=== PATIENT | female | born 1955 | race Caucasian/White ===

== ENCOUNTER → 2018-02-23 | Day surgery (SDC) | payer BC, OTHER ==
[2018-02-20 11:21] VITALS: BMI 29.2
[~2018-02-23] MED LIST: Fentanyl 100 MCG/2 ML VIAL ONE; Midazolam HCl 2 mg/2 ml Vial ONE
[2018-02-23 09:23] LABS: #Basophils 0.1 thou/uL (0.0-0.2); #Eosinphils 0.4 thou/uL (0.0-0.7); #Lymphocytes 1.5 thou/uL (1.20-3.40); #Monocytes 0.5 thou/uL (0.11-0.59); #Neutrophils 3.1 thou/uL (1.40-6.50); %Basophils 1.2 % (0.0-1.0); %Eosinophils 7.2 % (0.0-10.0); %Lymphocytes 26.9 % (21.0-51.0); %Neutrophils 55.8 % (42.0-75.0); Hemoglobin 13.6 g/dL (12.0-16.0); Mean Corpuscular HGB CONC 33.3 g/dL (32.0-36.0); Mean Corpuscular Hemoglobin 31.1 pg (27.0-31.0); Mean Corpuscular Volume 93.3 fl (81.0-99.0); Mean Platelet Volume 5.9 fL (7.4-10.4); Platelet Count 313 thou/uL (130-400); RBC Distribution Width 12.4 % (11.5-14.5); Red Blood Cell (RBC) Count 4.39 mill/uL (4.20-5.40); White Blood Cell (WBC) Count 5.5 thou/uL (4.8-10.8)
[2018-02-23 09:35] LABS: PTT 29.2 SEC (22.9-36.1); Prothrombin Time 13.1 SEC (12.0-14.7)
[2018-02-23 09:52] VITALS: TEMP 97.1
--- NOTE | 2018-02-23 12:00 | ULT ---
ULTRASOUND GUIDED LIVER BIOPSY: Date: 02/23/18 HISTORY: Biliary cirrhosis. COMPARISON: CT stone protocol dated 04/24/17. FINDINGS: The patient is brought to the ultrasound suite. All questions answered. The patient's abdomen was prepped and draped in the normal sterile fashion. 25 mcg of Fentanyl and 0. 5 mg of Versed was administered intravenously. Approximately 8 mL of lidocaine was instilled into sup erficial and deep soft tissues, and around the liver capsule. Using a 17 gauge introducer, the liver was accessed. Using an 18 gauge BioPince needle, two 22 mm cores were obtained. The patient tolerated the procedure well. IMPRESSION: Technically successful ultrasound guided liver biopsy. POS: DARLYN
== END ==
LOC: ULT 08:59
PROVIDERS: ATTEND Internal Medicine Gastroenterology
DX: K83.0 Cholangitis (principal); K29.70 Gastritis, unspecified, without bleeding; K21.9 Gastro-esophageal reflux disease without esophagitis; Z79.890 Hormone replacement therapy; Z79.899 Other long term (current) drug therapy; Z91.040 Latex allergy status; Z98.890 Other specified postprocedural states
CPT/HCPCS: 36415; 47000; 76942; 85025; 85610; 85730; 88307; 88313; 99152; 99153; J2250; J3010

== ENCOUNTER 2018-07-15 10:05 | Outpatient (CLI) | payer BC | END 2018-07-15 10:06 | disposition home or self-care (01) | LOC: BICMAMMO 10:05 | PROVIDERS: ATTEND Obstetrics & Gynecology | DX: Z12.31 Encounter for screening mammogram for malignant neoplasm of breast (principal); Z13.820 Encounter for screening for osteoporosis | CPT/HCPCS: 77063; 77067; 77080 ==

== ENCOUNTER 2019-07-22 11:52 | Outpatient (CLI) | payer BC ==
--- NOTE | 2019-07-22 12:40 | MMO ---
Bilateral MAMMO Bilat Screen [facility]. CLINICAL HISTORY: Patient is 64 years old and is seen for screening. The patient has no family history of breast cancer. The patient has no personal history of cancer. VIEWS: The views performed were: bilateral craniocaudal with tomosynthesis and bilateral mediolateral oblique with tomosynthesis. FILMS COMPARED: The present examination has been compared to prior imaging studies performed at [facility] on 01/09/2015, 03/17/2017 and 07/15/2018, and at [facility] on 07/28/2013. This study has been interpreted with the assistance of computer-aided detection. MAMMOGRAM FINDINGS: The breasts are almost entirely fat. There are no suspicious masses, suspicious calcifications, or new areas of architectural distortion. IMPRESSION: THERE IS NO MAMMOGRAPHIC EVIDENCE OF MALIGNANCY. A ROUTINE FOLLOW-UP MAMMOGRAM IN 1 YEAR IS RECOMMENDED. THE RESULTS OF THIS EXAM WERE SENT TO THE PATIENT. ACR BI-RADS Category 1 - Negative MAMMOGRAPHY NOTE: 1. A negative mammogram report should not delay a biopsy if a dominant of clinically suspicious mass is present. 2. Approximately 10% to 15% of breast cancers are not detected by mammography. 3. Adenosis and dense breasts may obscure an underlying neoplasm. Reported by: MAULIK ROSALES MD Electonically Signed: [id number]
== END 2019-07-22 11:53 | disposition home or self-care (01) ==
LOC: BICMAMMO 11:52
PROVIDERS: ATTEND Obstetrics & Gynecology
DX: Z12.31 Encounter for screening mammogram for malignant neoplasm of breast (principal)
CPT/HCPCS: 77063; 77067

== ENCOUNTER 2021-04-26 10:55 | Outpatient (CLI) | payer MEDICARE, BC | END 2021-04-26 10:56 | disposition home or self-care (01) | LOC: BICULT 10:55 | PROVIDERS: ATTEND Internal Medicine Gastroenterology | DX: K74.3 Primary biliary cirrhosis (principal); R16.1 Splenomegaly, not elsewhere classified; K76.6 Portal hypertension | CPT/HCPCS: 76705 ==

== ENCOUNTER 2021-09-17 21:20 | Observation (INO) | payer MEDICARE, BC ==
[~2021-09-17 21:20] MED LIST changes: -Fentanyl 100 MCG/2 ML VIAL ONE; +Iopamidol-370 76% 500 ML 1 ML ONE; -Midazolam HCl 2 mg/2 ml Vial ONE
[2021-09-17 22:04] LABS: #Basophils 0.1 thou/uL (0.0-0.2); #Eosinphils 0.5 thou/uL (0.0-0.7); #Lymphocytes 2.4 thou/uL (1.20-3.40); #Monocytes 0.7 thou/uL (0.11-0.59); #Neutrophils 5.2 thou/uL (1.40-6.50); %Basophils 0.7 % (0.0-1.0); %Eosinophils 5.7 % (0.0-10.0); %Lymphocytes 27.1 % (21.0-51.0); %Monocytes 7.5 % (0.0-10.0); Hemoglobin 14.7 g/dL (12.0-16.0); Mean Corpuscular HGB CONC 34.6 g/dL (32.0-36.0); Mean Corpuscular Hemoglobin 33.4 pg (27.0-31.0); Mean Corpuscular Volume 96.4 fL (78.0-98.0); Mean Platelet Volume 6.3 fL (7.4-10.4); Platelet Count 292 thou/uL (130-400); RBC Distribution Width 12.5 % (11.5-14.5); White Blood Cell (WBC) Count 8.8 thou/uL (4.8-10.8)
[2021-09-17 22:17] LABS: ALT (SGPT) 23 U/L (8-55); AST (SGOT) 25 U/L (5-34); Albumin 3.9 g/dL (3.4-4.8); Alkaline Phosphatase 84 U/L (40-110); Anion Gap 12 mmol/L (10-20); BUN (Urea Nitrogen) 19 mg/dL (9.8-20.1); Bilirubin, Total 0.5 mg/dL (0.2-1.2); Calc. Creatinine Clearance 0 mL/min (70-130); Calcium 9.3 mg/dL (7.8-10.44); Carbon Dioxide 26 mmol/L (23-31); Chloride 107 mmol/L (98-107); Globulin 3.3 g/dL (2.4-3.5); Glucose 120 mg/dL (80-115); Potassium 3.7 mmol/L (3.5-5.1); Protein, Total 7.2 g/dL (5.8-8.1); Sodium 141 mmol/L (136-145)
[2021-09-17] MEDS ORDERED: Nitroglycerin 0.4 MG TAB 1 EACH ONE (22:25)
[2021-09-17] MEDS ORDERED: Morphine 4 MG/ML VIAL ONE (22:47)
[2021-09-18] MEDS ORDERED: Aspirin 325 MG TAB ONE (00:04)
[2021-09-18 01:47] LABS: Troponin I Less than 0.010 ng/mL (< 0.028)
[2021-09-18 02:01] VITALS: BMI 37.3
[2021-09-18 05:06] LABS: Troponin I 0.011 ng/mL (< 0.028)
[2021-09-18] MEDS ORDERED: Guaifenesin DM 100-10/5 ML UDCUP PO PRN (07:34)
[2021-09-18] MEDS ORDERED: Acetaminophen 325 MG TAB PO PRN (07:34)
[2021-09-18] MEDS ORDERED: Ondansetron PF 4 MG/2 ML Vial IVP PRN (07:34)
[2021-09-18 08:31] LABS: Cardiac Risk 4.6 (Less than 4.5)
[2021-09-18] MEDS ORDERED: Non-Formulary Item 1 EACH (Ursodiol [Ursodiol] 500 MG Tablet) PO SCH (09:00)
[2021-09-18] MEDS ORDERED: Non-Formulary Item 1 EACH (Multivit-Min/Iron/Folic/Lutein [Centrum Silver Women] 1 TABLET PO SCH (09:00)
[2021-09-18] MEDS ORDERED: URSODIOL 500 MG PO SCH (09:00)
[2021-09-18] MEDS ORDERED: ADENOSINE 60 MG/20 ML VIAL ONE (10:15)
[2021-09-18] MEDS: Aspirin Chewable 81 MG TAB PO SCH (12:25)
[2021-09-18] MEDS: Multivit, Therapeutic 1 TAB PO SCH (12:25)
[2021-09-18] MEDS: Sodium Chloride 0.9% 1,000 ML IV SCH (12:26)
[2021-09-18] MEDS: Enoxaparin Sodium 40 MG/0.4 ML SYRINGE SC SCH (12:26)
[2021-09-18] MEDS ORDERED: Multivit, Therapeutic 1 TAB PO SCH (12:30)
[2021-09-18] MEDS ORDERED: Aspirin Chewable 81 MG TAB PO SCH (12:30)
[2021-09-18] MEDS ORDERED: Enoxaparin Sodium 40 MG/0.4 ML SYRINGE SC SCH (12:30)
[2021-09-18] MEDS ORDERED: Nitroglycerin 2% Ointment 1 INCH/1 GM Packet TOP SCH (14:00)
[2021-09-18 14:20] LABS: SARS-CoV-2 PCR by NAA Not Detected (NotDetected)
[2021-09-18] MEDS ORDERED: Nitroglycerin 0.4 MG TAB (25 Tab Bottle) SL PRN (19:50)
[2021-09-18] MEDS ORDERED: Nitroglycerin 0.4 MG TAB (25 Tab Bottle) ONE (19:51)
[2021-09-18 20:44] LABS: Troponin I 0.011 ng/mL (< 0.028)
[2021-09-18] MEDS ORDERED: Non-Formulary Item 1 EACH (Sertraline Hcl [Zoloft] 50 MG Tablet) PO SCH (21:00)
[2021-09-18] MEDS ORDERED: Estrogens, Conjugated 0.3 MG TAB PO SCH (21:00)
[2021-09-18] MEDS ORDERED: Melatonin/Pyridoxine [Melatonin 5 Mg Tablet] PO SCH (21:00)
[2021-09-18] MEDS ORDERED: Atorvastatin Calcium 20 MG TAB PO SCH (21:00)
[2021-09-18] MEDS ORDERED: Lisinopril 10 MG TAB PO SCH (21:00)
[2021-09-18] MEDS ORDERED: Non-Formulary Item 1 EACH (Melatonin/Pyridoxine [Melatonin 5 Mg Tablet] 1 EACH Tablet) PO SCH (21:00)
[2021-09-18] MEDS ORDERED: ESTROGENS CONJUGATED 0.45 MG PO SCH (21:00)
[2021-09-19] MEDS: Sodium Chloride 0.9% 1,000 ML IV SCH (01:10)
[2021-09-19 05:16] LABS: #Eosinphils 0.2 thou/uL (0.0-0.7); #Lymphocytes 1.8 thou/uL (1.20-3.40); #Monocytes 0.8 thou/uL (0.11-0.59); #Neutrophils 6.9 thou/uL (1.40-6.50); %Basophils 0.3 % (0.0-1.0); %Eosinophils 2.2 % (0.0-10.0); %Lymphocytes 18.4 % (21.0-51.0); %Monocytes 8.6 % (0.0-10.0); %Neutrophils 70.6 % (42.0-75.0); Hemoglobin 13.2 g/dL (12.0-16.0); Mean Corpuscular HGB CONC 34.5 g/dL (32.0-36.0); Mean Corpuscular Hemoglobin 33.1 pg (27.0-31.0); Mean Corpuscular Volume 95.9 fL (78.0-98.0); Platelet Count 257 thou/uL (130-400); RBC Distribution Width 12.3 % (11.5-14.5); Red Blood Cell (RBC) Count 3.98 mill/uL (4.20-5.40); White Blood Cell (WBC) Count 9.8 thou/uL (4.8-10.8)
[2021-09-19 05:32] LABS: ALT (SGPT) 21 U/L (8-55); AST (SGOT) 22 U/L (5-34); Albumin 3.4 g/dL (3.4-4.8); Alkaline Phosphatase 70 U/L (40-110); Anion Gap 9 mmol/L (10-20); BUN (Urea Nitrogen) 14 mg/dL (9.8-20.1); Bilirubin, Total 0.7 mg/dL (0.2-1.2); Calc. Creatinine Clearance 85 mL/min (70-130); Calcium 9.1 mg/dL (7.8-10.44); Carbon Dioxide 25 mmol/L (23-31); Chloride 107 mmol/L (98-107); Glucose 107 mg/dL (80-115); Protein, Total 6.4 g/dL (5.8-8.1); Sodium 137 mmol/L (136-145)
[2021-09-19 08:10] VITALS: TEMP 98.1
[2021-09-19] MEDS: Multivit, Therapeutic 1 TAB PO SCH (10:03)
[2021-09-19] MEDS: Aspirin Chewable 81 MG TAB PO SCH (10:03)
[2021-09-19] MEDS: Enoxaparin Sodium 40 MG/0.4 ML SYRINGE SC SCH (10:03)
[2021-09-19 12:31] VITALS: BP 149/66
== END 2021-09-19 12:46 | disposition home or self-care (01) ==
LOC: ERS 21:20 → 2SW 09-18 00:16
PROVIDERS: ADMIT Internal Medicine; ATTEND Internal Medicine
DX: R07.89 Other chest pain (principal); I10 Essential (primary) hypertension; F39 Unspecified mood [affective] disorder; E78.5 Hyperlipidemia, unspecified; G47.33 Obstructive sleep apnea (adult) (pediatric); E66.9 Obesity, unspecified; Z68.37 Body mass index [BMI] 37.0-37.9, adult; Z79.82 Long term (current) use of aspirin; Z79.899 Other long term (current) drug therapy; Z91.040 Latex allergy status; Z20.822 Contact with and (suspected) exposure to COVID-19
CPT/HCPCS: 71045; 71275; 72128; 74174; 78452; 80053 ×2; 80061; 83690; 83880; 84484 ×3; 85025 ×2; 93005 ×2; 93017; 96372 ×2; A9500; G0378 ×3; U0003; U0005; 36415; 93010; 96374; J0153; J1650; J2270; J7050; Q9967

== ENCOUNTER 2021-11-09 07:50 | Outpatient (CLI) | payer MEDICARE, BC | END 2021-11-09 07:51 | disposition home or self-care (01) | LOC: BICMAMMO 07:50 | PROVIDERS: ATTEND Obstetrics & Gynecology | DX: Z12.31 Encounter for screening mammogram for malignant neoplasm of breast (principal) | CPT/HCPCS: 77063; 77067 ==

== ENCOUNTER 2022-09-09 09:21 | Outpatient (CLI) | payer MEDICARE, BC | END 2022-09-09 09:22 | disposition home or self-care (01) | LOC: BICMAMMO 09:21 | PROVIDERS: ATTEND Obstetrics & Gynecology | DX: Z13.820 Encounter for screening for osteoporosis (principal); M85.89 Other specified disorders of bone density and structure, multiple sites | CPT/HCPCS: 77080 ==

== ENCOUNTER 2024-12-28 11:23 | Inpatient (IN) | payer MEDICARE ==
[2024-12-28 11:50] LABS: #Basophils 0.05 10x3/uL (0.0-0.2); %Basophils 0.7 % (0.0-1.0); %Eosinophils 6.1 % (0.0-10.0); %Lymphocytes 18.5 % (21.0-51.0); %Monocytes 8.2 % (0.0-10.0); %Neutrophils 66.4 % (42.0-75.0); Hematocrit 37.8 % (36.0-47.0); Hemoglobin 12.8 g/dL (12.0-16.0); Mean Corpuscular HGB CONC 33.9 g/dL (32.0-36.0); Mean Corpuscular Hemoglobin 30.8 pg (27.0-31.0); Mean Corpuscular Volume 91.1 fL (78.0-98.0); Mean Platelet Volume 9.1 fL (7.4-10.4); Platelet Count 242 10x3/uL (130-400); RBC Distribution Width 13.3 % (11.5-14.5); Red Blood Cell (RBC) Count 4.15 mill/uL (4.20-5.40)
[2024-12-28] MEDS ORDERED: Nitroglycerin 2% Ointment 1 INCH/1 GM Packet ONE ×3 (11:50→12:00)
[2024-12-28] MEDS ORDERED: Acetaminophen 500 MG TAB ONE (11:58)
[2024-12-28] MEDS ORDERED: Aspirin Chewable 81 MG TAB ONE (11:59)
[2024-12-28 12:09] LABS: Troponin I 0.019 ng/mL (< 0.028)
[2024-12-28 12:14] LABS: ALT (SGPT) 26 U/L (Less than 34); AST (SGOT) 43 U/L (11-34); Albumin 3.3 g/dL (3.1-4.5); Alkaline Phosphatase 71 U/L (40-110); Anion Gap 11 mmol/L (10-20); BUN (Urea Nitrogen) 18 mg/dL (9.8-20.1); Bilirubin, Total 0.6 mg/dL (0.3-1.2); Calc. Creatinine Clearance 0 mL/min (70-130); Calcium 8.6 mg/dL (7.8-10.44); Carbon Dioxide 23 mmol/L (23-31); Chloride 112 mmol/L (98-107); Estimated GFR 70; Globulin 3.4 g/dL (2.4-3.5); Glucose 113 mg/dL (80-115); Potassium 3.8 mmol/L (3.5-5.1); Protein, Total 6.7 g/dL (5.8-8.1); Sodium 142 mmol/L (136-145)
[2024-12-28] MEDS ORDERED: Calcium Carbonate 500 MG ChewTAB PO PRN (13:57)
[2024-12-28 16:36] LABS: Hemoglobin A1c 5.1 % (4.0-6.0)
[2024-12-28 16:50] LABS: Cardiac Risk 3.6 (Less than 4.5)
[2024-12-28 18:38] VITALS: BMI 37.8
[2024-12-28] MEDS: Acetaminophen 325 MG TAB PO PRN (19:33)
[2024-12-28] MEDS: hydrALAZINE 20 MG/ML VIAL SLOW IVP PRN (19:40)
[2024-12-28 19:56] LABS: Troponin I 0.011 ng/mL (< 0.028)
[2024-12-28] MEDS: Estrogens, Conjugated 0.3 MG TAB PO SCH (20:19)
[2024-12-28] MEDS: Ursodiol 300 MG CAP PO SCH (20:20)
[2024-12-28] MEDS: Vitamin E 400 UNITS CAP PO SCH (20:20)
[2024-12-28] MEDS: Metoclopramide HCl 10 MG (2 mL) VIAL IVP SCH (21:40)
[2024-12-29 04:43] LABS: #Basophils 0.04 10x3/uL (0.0-0.2); %Basophils 0.5 % (0.0-1.0); %Eosinophils 5.9 % (0.0-10.0); %Lymphocytes 25.3 % (21.0-51.0); %Monocytes 10.7 % (0.0-10.0); %Neutrophils 57.3 % (42.0-75.0); Hematocrit 36.9 % (36.0-47.0); Hemoglobin 12.4 g/dL (12.0-16.0); Mean Corpuscular HGB CONC 33.6 g/dL (32.0-36.0); Mean Corpuscular Volume 92.3 fL (78.0-98.0); Mean Platelet Volume 9.3 fL (7.4-10.4); Platelet Count 233 10x3/uL (130-400); RBC Distribution Width 13.2 % (11.5-14.5)
[2024-12-29 05:03] LABS: Anion Gap 10 mmol/L (10-20); BUN (Urea Nitrogen) 16 mg/dL (9.8-20.1); Calc. Creatinine Clearance 89 mL/min (70-130); Calcium 8.7 mg/dL (7.8-10.44); Carbon Dioxide 25 mmol/L (23-31); Chloride 111 mmol/L (98-107); Estimated GFR 67; Glucose 91 mg/dL (80-115); Potassium 4.2 mmol/L (3.5-5.1); Sodium 142 mmol/L (136-145)
[2024-12-29] MEDS: Losartan 25 MG TAB PO SCH (08:59)
[2024-12-29] MEDS: Cholecalciferol 1,000 UNITS (25 MCG) TAB PO SCH (09:00)
[2024-12-29] MEDS: Enoxaparin 40 MG (0.4 mL) SYRINGE SC SCH (09:00)
[2024-12-29] MEDS: Famotidine 20 MG TAB PO SCH (09:00)
[2024-12-29] MEDS: DULoxetine 60 MG CAP PO SCH (09:00)
[2024-12-29] MEDS: Multivit, Therapeutic 1 TAB PO SCH (09:00)
[2024-12-29] MEDS: Rosuvastatin 10 MG TAB PO SCH (09:00)
[2024-12-29] MEDS ORDERED: Regadenoson 0.4 MG/5 ML SYRINGE ONE (10:41)
[2024-12-29] MEDS: Hydrochlorothiazide 25 MG TAB PO SCH (17:05)
[2024-12-29] MEDS ORDERED: Naproxen 500 MG TAB PO PRN (19:50)
[2024-12-29] MEDS: Naproxen 500 MG TAB PO SCH (20:53)
[2024-12-29] MEDS: Metoclopramide HCl 10 MG (2 mL) VIAL IVP SCH (20:55)
[2024-12-30] MEDS: Hydrochlorothiazide 25 MG TAB PO SCH (09:19)
[2024-12-30] MEDS: NIFEdipine XL 30 MG ER.TAB PO SCH (10:44)
[2024-12-30 12:07] VITALS: BP 145/72; TEMP 98.1
[2024-12-31] MEDS ORDERED: NIFEdipine XL 30 MG ER.TAB PO SCH (09:00)
== END 2024-12-30 13:08 | disposition home or self-care (01) | DRG 313 ==
LOC: ERS 11:23 → ERHOLD 14:06 → OBS 18:30 → OBSVTOIN 12-30 08:31
PROVIDERS: ADMIT Emergency Medicine; ATTEND Emergency Medicine
DX: R07.2 Precordial pain (principal); I10 Essential (primary) hypertension; I16.0 Hypertensive urgency; G47.33 Obstructive sleep apnea (adult) (pediatric); F32.A Depression, unspecified; E78.5 Hyperlipidemia, unspecified; K21.9 Gastro-esophageal reflux disease without esophagitis; Z91.040 Latex allergy status; Z79.899 Other long term (current) drug therapy; Z90.49 Acquired absence of other specified parts of digestive tract; Z90.710 Acquired absence of both cervix and uterus; Z98.890 Other specified postprocedural states; Z82.49 Family history of ischemic heart disease and other diseases of the circulatory system
CPT/HCPCS: 36415; 36416; 71045; 78452; 80048; 80053; 80061; 83036; 83880; 84443; 84484; 85025; 93005; 93017; 94760; A9502; J0360; J1650; J2765; J2785